=== PATIENT | male | born 1940 | race Caucasian/White ===

== ENCOUNTER 2024-11-04 13:19 | Emergency (ER) | payer OTHER ==
[~2024-11-04] VITALS: Ht 167.6 cm; Wt 67.1 kg
[2024-11-04] MEDS ORDERED: Ketorolac Tromethamine 30mg Vial IM ONE (15:30)
== END 2024-11-04 15:41 | disposition home or self-care (01) ==
LOC: ER 13:19
DX: S86.111A Strain of other muscle(s) and tendon(s) of posterior muscle group at lower leg level, right leg, initial encounter (principal); S76.311A Strain of muscle, fascia and tendon of the posterior muscle group at thigh level, right thigh, initial encounter; I10 Essential (primary) hypertension; Z79.82 Long term (current) use of aspirin; X50.1XXA Overexertion from prolonged static or awkward postures, initial encounter
CPT/HCPCS: 93971; 96372; 99283-25; J1885